=== PATIENT | female | born 1965 | race African-American/Black ===

== ENCOUNTER 2016-10-21 14:13 | Inpatient (IN) | payer MEDICARE, MEDICAID ==
[~2016-10-21] VITALS: Ht 172.7 cm; Wt 81.2 kg
[~2016-10-21 14:13] MED LIST: AMLODIPINE; ATEN-42 PO; CHLO25TA16 PO; CYCL-108 PO; IRON; PRILOSEC; TRAMADOL
[2016-10-21] MEDS ORDERED: SODIUM CHLORIDE 0.9% 1,000 ML IV ONE (16:07)
[2016-10-21] MEDS ORDERED: ALBUTEROL (0.083%) 2.5MG/3ML NEB HHN STA (16:07)
[2016-10-21] MEDS ORDERED: IPRATROPIUM BROMIDE (0.02%) 0.5MG/2.5ML NEB HHN STA (16:07)
[2016-10-21] MEDS ORDERED: KETOROLAC 30MG/ML VIAL IV ONE (16:15)
[2016-10-21] MEDS ORDERED: ONDANSETRON HCL 4MG/2ML VIAL IV ONE (16:15)
[2016-10-21] MEDS ORDERED: ALBUTEROL (0.5%) 2.5MG/0.5ML NEB HHN ONE (16:25)
[2016-10-21 16:53] LABS: BASOPHILS % 0.4 % (0.0-2.0); DIFFERENTIAL COMMENT 0; EOSINOPHILS % 1.1 % (0.0-5.0); HEMATOCRIT. 40.4 % (36.0-48.0); HEMOGLOBIN. 13.9 g/dL (12.0-16.0); LYMPHOCYTES % 8.8 % (20.0-50.0); MEAN CORPUSCULAR HEMOGLOBIN 33.1 pg (28.0-32.0); MEAN CORPUSCULAR HGB CONC 34.5 g/dL (31.0-37.0); MEAN CORPUSCULAR VOLUME 96.1 fL (81.0-99.0); MEAN PLATELET VOLUME 9.5 fl (7.4-10.4); MONOCYTES % 4.5 % (2.0-8.0); NEUTROPHILS % 85.2 % (40.0-76.0); PLATELET 287 x1000/uL (130-400); RED BLOOD CELL COUNT 4.21 mill/uL (4.2-5.4); RED CELL DISTRIBUTION WIDTH 14.7 % (11.6-14.6); WHITE BLOOD COUNT 20.7 x1000/uL (4.5-11.0)
[2016-10-21 16:59] LABS: INR 1.5; PARTIAL THROMBOPLASTIN TIME 32.7 sec (24.0-34.0); PROTHROMBIN TIME 16.2 sec
[2016-10-21 17:04] LABS: ALBUMIN 3.2 g/dL (3.4-5.0); ANION GAP 16; CALCIUM 8.3 mg/dL (8.5-10.1); CARBON DIOXIDE 27 mEq/L (21-32); CHLORIDE 94 mEq/L (98-107); INDEX HEMOLYSI 1 (1-3); INDEX ICTERIC 1 (1-4); INDEX LIPEMIC 1 (1-3); LIPASE 150 IU/L (73-393); UREA NITROGEN BLOOD 16 mg/dL (7-21); eGFR 57 mL/min (>60)
[2016-10-21 17:10] LABS: ALANINE AMINOTRANSFERASE 2315 IU/L (13-61)
[2016-10-21] MEDS ORDERED: PIPERACILLIN/TAZ 3.375G PREMIX 50 ML IV NR (18:00)
[2016-10-21] MEDS ORDERED: POTASSIUM CHLORIDE 40MEQ/30ML UDC PO ONE (18:15)
[2016-10-21] MEDS ORDERED: POTASSIUM CHLORIDE 20MEQ TABLET SR PO NR (18:39)
[2016-10-21 19:09] LABS: BILIRUBIN DIRECT 0.5 mg/dL (0.0-0.2); INDEX HEMOLYSI 2 (1-3); TROPONIN I < 0.02 ng/mL (0.00-0.04)
[2016-10-21 19:12] LABS: LACTIC ACID 2.8 mmol/L (0.4-2.0)
[2016-10-21] MEDS ORDERED: KCL 20MEQ/100ML PREMIX 100 ML IV ONE (19:15)
[2016-10-21 19:38] LABS: HEPATITIS B SURFACE ANTIGEN NEGATIVE
[2016-10-21 19:59] LABS: ETHANOL BLOOD < 10 mg/dL; INDEX HEMOLYSI 1 (1-3); MAGNESIUM 1.9 mg/dL (1.8-2.4)
[2016-10-21 20:05] LABS: HEPATITIS C VIR.AB < 0.02 INDEXVAL (0.00-0.80)
[2016-10-21 20:06] LABS: HEPATITIS B CORE AB IGM NEGATIVE
[2016-10-21 20:07] LABS: HEPATITIS A AB IGM NEGATIVE (NEGATIVE)
[2016-10-21 20:09] LABS: CLARITY URINE CLOUDY (CLEAR); COLOR URINE DARK YELLOW (YELLOW); GLUCOSE URINE NEGATIVE (NEGATIVE); KETONES URINE TRACE (NEGATIVE); LEUKOCYTE ESTERASE URINE NEGATIVE (NEGATIVE); NITRITE URINE NEGATIVE (NEGATIVE); OCCULT BLOOD URINE 2+ (NEGATIVE); PROTEIN URINE TRACE (NEGATIVE); SPECIFIC GRAVITY URINE 1.032 (1.005-1.030)
[2016-10-21 20:41] LABS: BACTERIA URINE 3+; SQUAMOUS EPITHELIAL CELL URINE FEW /lpf (RARE/1+); WBC URINE 0-2 /hpf (0-2)
[2016-10-21] MEDS ORDERED: HYDROCODONE/APAP 7.5/325MG 1 TAB TABLET PO ONE (20:45)
[2016-10-21] MEDS ORDERED: ACET-2178 PO (22:59)
[2016-10-21] MEDS ORDERED: PSEU120T84 PO (23:10)
[2016-10-21] MEDS ORDERED: OMEP20CA10 PO (23:10)
[2016-10-21] MEDS ORDERED: ASPI-1035 PO (23:10)
[2016-10-21] MEDS ORDERED: DOCU-150 PO (23:10)
[2016-10-21] MEDS ORDERED: ATEN50TA PO (23:10)
[2016-10-21] MEDS ORDERED: FERR-63 PO (23:10)
[2016-10-21] MEDS ORDERED: AMLO10TA80 PO (23:10)
[2016-10-21] MEDS ORDERED: OCD PO (23:10)
[2016-10-21] MEDS ORDERED: CLAR10 PO (23:10)
[2016-10-21] MEDS ORDERED: HYDR25TA PO (23:10)
[2016-10-21] MEDS ORDERED: IBUP-1509 PO (23:10)
[2016-10-21] MEDS ORDERED: MOME13HF2 INH (23:10)
[2016-10-21 23:13] VITALS: BP 102/72
[2016-10-21] MEDS ORDERED: FLUT16SP15 INH (23:13)
[2016-10-21] MEDS ORDERED: [UNRECOGNIZED DRUG - OTHER] (23:15)
[2016-10-21 23:30] VITALS: BP 104/52
[2016-10-22] VITALS: BP 110/65
[2016-10-22] MEDS ORDERED: ONDANSETRON HCL 4MG/2ML VIAL IV PRN
[2016-10-22] MEDS: MORPHINE SULFATE 4 MG/ML CPJ (NOT FOR IM USE) IV PRN ×3 (00:32→21:13)
[2016-10-22] MEDS: DEXT 5%/0.45% NACL KCL 20MEQ/L 1,000 ML IV SCH ×2 (02:12→21:14)
[2016-10-22 04:00] VITALS: BP 101/66
[2016-10-22 06:01] LABS: HEMATOCRIT 38.4 % (36.0-48.0); HEMOGLOBIN 13.1 g/dL (12.0-16.0); MEAN CORPUSCULAR HEMOGLOBIN 32.4 pg (28.0-32.0); MEAN CORPUSCULAR VOLUME 95.1 fL (81.0-99.0); PLATELET 285 x1000/uL (130-400); RED BLOOD CELL COUNT 4.03 mill/uL (4.2-5.4); RED CELL DISTRIBUTION WIDTH 14.7 % (11.6-14.6); WHITE BLOOD COUNT 17.2 x1000/uL (4.5-11.0)
[2016-10-22 07:00] LABS: CHLORIDE 96 mEq/L (98-107); INDEX HEMOLYSI 1 (1-3); INDEX ICTERIC 1 (1-4); INDEX LIPEMIC 1 (1-3)
[2016-10-22 07:16] LABS: ALANINE AMINOTRANSFERASE 1764 IU/L (13-61); ALBUMIN 2.6 g/dL (3.4-5.0); ANION GAP 15; CARBON DIOXIDE 26 mEq/L (21-32); GAMMA GLUTAMYL TRANSPEPTIDASE 355 IU/L (7-32); UREA NITROGEN BLOOD 12 mg/dL (7-21); eGFR > 60 mL/min (>60)
[2016-10-22 08:00] VITALS: BP 112/70
[2016-10-22] MEDS ORDERED: POTASSIUM CHLORIDE 20MEQ TABLET SR PO NR (08:30)
[2016-10-22] MEDS: PANTOPRAZOLE SODIUM 40 MG/VIAL IV SCH (09:09)
[2016-10-22] MEDS ORDERED: POTASSIUM CHLORIDE INJ 40 MEQ in DEXT 5% WATER 250 ML IV NR (09:30)
[2016-10-22] MEDS ORDERED: IPRATROPIUM/ALBUTEROL 0.5-3(2.5)MG/3ML NEB HHN PRN (11:15)
[2016-10-22] MEDS ORDERED: AZITHROMYCIN 500 MG in DEXT 5% WATER 250 ML IV SCH (11:30)
[2016-10-22 12:00] VITALS: BP 100/69
[2016-10-22] MEDS: IPRATROPIUM/ALBUTEROL 0.5-3(2.5)MG/3ML NEB HHN SCH ×2 (13:20→20:34)
[2016-10-22] MEDS: CEFTRIAXONE 1 G PREMIX 50 ML IV SCH (15:26)
[2016-10-22 16:00] VITALS: BP 108/66
[2016-10-22] MEDS: AZITHROMYCIN 500 MG in DEXT 5% WATER 250 ML IV SCH (16:01)
[2016-10-22 20:00] VITALS: BP 104/74
[2016-10-23] VITALS: BP 111/70
[2016-10-23] MEDS: IPRATROPIUM/ALBUTEROL 0.5-3(2.5)MG/3ML NEB HHN SCH ×4 (02:43→20:40)
[2016-10-23 04:00] VITALS: BP 125/71
[2016-10-23 05:49] LABS: ALBUMIN 2.4 g/dL (3.4-5.0); ANION GAP 14; CALCIUM 8.1 mg/dL (8.5-10.1); CARBON DIOXIDE 27 mEq/L (21-32); CHLORIDE 97 mEq/L (98-107); INDEX HEMOLYSI 1 (1-3); INDEX ICTERIC 1 (1-4); INDEX LIPEMIC 1 (1-3); UREA NITROGEN BLOOD 6 mg/dL (7-21); eGFR > 60 mL/min (>60)
[2016-10-23 05:50] LABS: ALANINE AMINOTRANSFERASE 1066 IU/L (13-61)
[2016-10-23 05:52] LABS: HEMATOCRIT. 35.6 % (36.0-48.0); MEAN CORPUSCULAR HEMOGLOBIN 32.5 pg (28.0-32.0); MEAN CORPUSCULAR HGB CONC 33.8 g/dL (31.0-37.0); MEAN CORPUSCULAR VOLUME 96.3 fL (81.0-99.0); MEAN PLATELET VOLUME 9.3 fl (7.4-10.4); PLATELET 264 x1000/uL (130-400); RED CELL DISTRIBUTION WIDTH 14.8 % (11.6-14.6); WHITE BLOOD COUNT 15.3 x1000/uL (4.5-11.0)
[2016-10-23 07:19] LABS: DIFFERENTIAL COMMENT 1
[2016-10-23 08:00] VITALS: BP 97/63
[2016-10-23] MEDS: PANTOPRAZOLE SODIUM 40 MG/VIAL IV SCH (10:19)
[2016-10-23] MEDS ORDERED: POTASSIUM CHLORIDE 20MEQ TABLET SR PO NR (11:45)
[2016-10-23 12:00] VITALS: BP 101/65
[2016-10-23] MEDS: GUAIFENESIN/CODEINE 100-10MG/5ML UDC PO PRN ×2 (12:05→17:09)
[2016-10-23] MEDS: CEFTRIAXONE 1 G PREMIX 50 ML IV SCH (13:00)
[2016-10-23 14:09] LABS: NUCLEATED RED BLOOD CELLS 1 /100 WBC; PLATELET ESTIMATE NORMAL
[2016-10-23 16:00] VITALS: BP 105/68
[2016-10-23] MEDS: METHYLPREDNISOLONE SOD SUCC 40 MG/ML VIAL IV SCH ×2 (17:09→21:08)
[2016-10-23] MEDS: AZITHROMYCIN 500 MG in DEXT 5% WATER 250 ML IV SCH (17:09)
[2016-10-23] MEDS: DEXT 5%/0.45% NACL KCL 20MEQ/L 1,000 ML IV SCH (18:00)
[2016-10-23 20:00] VITALS: BP 117/80
[2016-10-23] MEDS: BUDESONIDE 0.5MG/2ML NEB HHN SCH (20:40)
[2016-10-23] MEDS: BENZONATATE 100MG CAPSULE PO PRN (21:08)
[2016-10-23] MEDS: MORPHINE SULFATE 4 MG/ML CPJ (NOT FOR IM USE) IV PRN (21:10)
[2016-10-24] VITALS: BP 117/79
[2016-10-24] MEDS: GUAIFENESIN/CODEINE 100-10MG/5ML UDC PO PRN ×4 (00:54→21:46)
[2016-10-24] MEDS: IPRATROPIUM/ALBUTEROL 0.5-3(2.5)MG/3ML NEB HHN SCH ×3 (01:49→20:40)
[2016-10-24] MEDS: DEXT 5%/0.45% NACL KCL 20MEQ/L 1,000 ML IV SCH ×2 (01:57→08:33)
[2016-10-24 04:00] VITALS: BP 119/82
[2016-10-24] MEDS: METHYLPREDNISOLONE SOD SUCC 40 MG/ML VIAL IV SCH ×2 (05:27→14:44)
[2016-10-24] MEDS: BENZONATATE 100MG CAPSULE PO PRN (05:27)
[2016-10-24] MEDS: MORPHINE SULFATE 4 MG/ML CPJ (NOT FOR IM USE) IV PRN ×3 (05:33→21:57)
[2016-10-24 06:19] LABS: HEMOGLOBIN. 11.8 g/dL (12.0-16.0); MEAN CORPUSCULAR HEMOGLOBIN 32.5 pg (28.0-32.0); MEAN CORPUSCULAR HGB CONC 33.8 g/dL (31.0-37.0); MEAN CORPUSCULAR VOLUME 96.1 fL (81.0-99.0); MEAN PLATELET VOLUME 9.2 fl (7.4-10.4); PLATELET 271 x1000/uL (130-400); RED BLOOD CELL COUNT 3.64 mill/uL (4.2-5.4); RED CELL DISTRIBUTION WIDTH 15.1 % (11.6-14.6); WHITE BLOOD COUNT 14.8 x1000/uL (4.5-11.0)
[2016-10-24 06:36] LABS: ALBUMIN 2.5 g/dL (3.4-5.0); ANION GAP 14; CALCIUM 8.3 mg/dL (8.5-10.1); CARBON DIOXIDE 25 mEq/L (21-32); CHLORIDE 99 mEq/L (98-107); INDEX HEMOLYSI 1 (1-3); INDEX ICTERIC 1 (1-4); INDEX LIPEMIC 1 (1-3)
[2016-10-24 06:41] LABS: ALANINE AMINOTRANSFERASE 704 IU/L (13-61); MAGNESIUM 2.3 mg/dL (1.8-2.4); eGFR > 60 mL/min (>60)
[2016-10-24 06:42] LABS: UREA NITROGEN BLOOD 4 mg/dL (7-21)
[2016-10-24 07:04] LABS: DIFFERENTIAL COMMENT 1
[2016-10-24] MEDS: BUDESONIDE 0.5MG/2ML NEB HHN SCH ×2 (07:13→20:40)
[2016-10-24 08:00] VITALS: BP 128/84
[2016-10-24] MEDS: FAMOTIDINE 20MG TABLET PO SCH ×2 (08:32→21:47)
[2016-10-24] MEDS ORDERED: POTASSIUM CHLORIDE 20MEQ TABLET SR PO SCH (09:30)
[2016-10-24 11:08] LABS: PLATELET ESTIMATE NORMAL
[2016-10-24 12:00] VITALS: BP 138/73
[2016-10-24] MEDS: CEFTRIAXONE 1 G PREMIX 50 ML IV SCH (13:44)
[2016-10-24] MEDS: AZITHROMYCIN 500 MG in DEXT 5% WATER 250 ML IV SCH (14:46)
[2016-10-24 16:00] VITALS: BP_SYST 120; BP_SYST 125; BP_DIAS 78
[2016-10-24 20:00] VITALS: BP 133/90
[2016-10-24] MEDS: FLUTICASONE PROPIONATE 50MCG/SPRAY BOTTLE BOTHNSTRLS SCH (21:47)
[2016-10-24] MEDS: LORATADINE 10MG TABLET PO SCH (21:58)
[2016-10-25] VITALS: BP 126/77
[2016-10-25] MEDS: BENZONATATE 100MG CAPSULE PO PRN ×2 (00:52→16:09)
[2016-10-25] MEDS: IPRATROPIUM/ALBUTEROL 0.5-3(2.5)MG/3ML NEB HHN SCH ×4 (02:28→20:14)
[2016-10-25] MEDS: GUAIFENESIN/CODEINE 100-10MG/5ML UDC PO PRN ×3 (02:50→22:49)
[2016-10-25] MEDS: ACETAMINOPHEN 325MG TABLET PO PRN ×2 (03:09→16:09)
[2016-10-25 04:00] VITALS: BP 124/78
[2016-10-25 08:00] VITALS: BP 132/84
[2016-10-25] MEDS: METHYLPREDNISOLONE SOD SUCC 40 MG/ML VIAL IV SCH ×2 (08:02→16:09)
[2016-10-25] MEDS: FAMOTIDINE 20MG TABLET PO SCH ×2 (08:02→20:52)
[2016-10-25] MEDS: DEXT 5%/0.45% NACL KCL 20MEQ/L 1,000 ML IV SCH (08:02)
[2016-10-25] MEDS: FLUTICASONE PROPIONATE 50MCG/SPRAY BOTTLE BOTHNSTRLS SCH ×2 (08:03→20:52)
[2016-10-25] MEDS: BUDESONIDE 0.5MG/2ML NEB HHN SCH ×2 (09:50→20:17)
[2016-10-25 12:00] VITALS: BP 131/88
[2016-10-25] MEDS: CEFTRIAXONE 1 G PREMIX 50 ML IV SCH (13:32)
[2016-10-25] MEDS: AZITHROMYCIN 500 MG in DEXT 5% WATER 250 ML IV SCH (15:53)
[2016-10-25 16:00] VITALS: BP 123/90
[2016-10-25 17:55] LABS: HEMATOCRIT. 36.4 % (36.0-48.0); HEMOGLOBIN. 12.1 g/dL (12.0-16.0); MEAN CORPUSCULAR HEMOGLOBIN 32.3 pg (28.0-32.0); MEAN CORPUSCULAR HGB CONC 33.2 g/dL (31.0-37.0); MEAN CORPUSCULAR VOLUME 97.4 fL (81.0-99.0); MEAN PLATELET VOLUME 9.4 fl (7.4-10.4); PLATELET 338 x1000/uL (130-400); RED BLOOD CELL COUNT 3.74 mill/uL (4.2-5.4); RED CELL DISTRIBUTION WIDTH 15.2 % (11.6-14.6); WHITE BLOOD COUNT 24.6 x1000/uL (4.5-11.0)
[2016-10-25 17:57] LABS: DIFFERENTIAL COMMENT 1
[2016-10-25 18:18] LABS: ANION GAP 14; CALCIUM 8.7 mg/dL (8.5-10.1); CARBON DIOXIDE 23 mEq/L (21-32); CHLORIDE 105 mEq/L (98-107); INDEX HEMOLYSI 1 (1-3); INDEX ICTERIC 1 (1-4); INDEX LIPEMIC 1 (1-3); UREA NITROGEN BLOOD 6 mg/dL (7-21); eGFR > 60 mL/min (>60)
[2016-10-25 20:00] VITALS: BP 114/86
[2016-10-25 20:51] LABS: PLATELET ESTIMATE NORMAL
[2016-10-25 20:52] LABS: ANISOCYTOSIS 1+; GIANT PLATELETS FEW; PLATELET SATELLITISM FEW
[2016-10-25] MEDS: LORATADINE 10MG TABLET PO SCH (20:52)
[2016-10-25] MEDS: GUAIFENESIN 600MG ER TABLET PO SCH (20:52)
[2016-10-25] MEDS: MORPHINE SULFATE 4 MG/ML CPJ (NOT FOR IM USE) IV PRN (23:36)
[2016-10-26] VITALS (7 sets, daily range): BP systolic 113–135; BP diastolic 74–98
[2016-10-26] MEDS: DEXT 5%/0.45% NACL KCL 20MEQ/L 1,000 ML IV SCH ×3 (00:51→15:27)
[2016-10-26] MEDS: IPRATROPIUM/ALBUTEROL 0.5-3(2.5)MG/3ML NEB HHN SCH ×5 (02:19→20:28)
[2016-10-26] MEDS: BENZONATATE 100MG CAPSULE PO PRN ×2 (02:26→15:26)
[2016-10-26] MEDS: ZOLPIDEM TARTRATE 5MG TABLET PO PRN ×2 (02:27→23:33)
[2016-10-26] MEDS: GUAIFENESIN/CODEINE 100-10MG/5ML UDC PO PRN (06:55)
[2016-10-26] MEDS: FAMOTIDINE 20MG TABLET PO SCH ×2 (08:38→21:29)
[2016-10-26] MEDS: GUAIFENESIN 600MG ER TABLET PO SCH ×2 (08:38→21:29)
[2016-10-26] MEDS: METHYLPREDNISOLONE SOD SUCC 40 MG/ML VIAL IV SCH ×2 (08:38→17:16)
[2016-10-26] MEDS: FLUTICASONE PROPIONATE 50MCG/SPRAY BOTTLE BOTHNSTRLS SCH ×2 (08:38→21:30)
[2016-10-26] MEDS: BUDESONIDE 0.5MG/2ML NEB HHN SCH ×2 (08:50→20:29)
[2016-10-26] MEDS: CEFTRIAXONE 1 G PREMIX 50 ML IV SCH (13:51)
[2016-10-26] MEDS: AZITHROMYCIN 500 MG in DEXT 5% WATER 250 ML IV SCH (15:26)
[2016-10-26] MEDS: MORPHINE SULFATE 4 MG/ML CPJ (NOT FOR IM USE) IV PRN ×2 (15:27→21:37)
[2016-10-26] MEDS: LORATADINE 10MG TABLET PO SCH (21:29)
[2016-10-27] VITALS: BP 128/76
[2016-10-27] MEDS: IPRATROPIUM/ALBUTEROL 0.5-3(2.5)MG/3ML NEB HHN SCH ×3 (02:45→13:48)
[2016-10-27 04:00] VITALS: BP 122/79
[2016-10-27 08:00] VITALS: BP 126/92
[2016-10-27] MEDS: BUDESONIDE 0.5MG/2ML NEB HHN SCH (08:42)
[2016-10-27] MEDS: GUAIFENESIN 600MG ER TABLET PO SCH (09:34)
[2016-10-27] MEDS: METHYLPREDNISOLONE SOD SUCC 40 MG/ML VIAL IV SCH (09:34)
[2016-10-27] MEDS: FLUTICASONE PROPIONATE 50MCG/SPRAY BOTTLE BOTHNSTRLS SCH (09:34)
[2016-10-27] MEDS: FAMOTIDINE 20MG TABLET PO SCH (09:35)
[2016-10-27] MEDS: DEXT 5%/0.45% NACL KCL 20MEQ/L 1,000 ML IV SCH (09:36)
[2016-10-27] MEDS: ACETAMINOPHEN 325MG TABLET PO PRN (09:49)
[2016-10-27 12:00] VITALS: BP 124/80
[2016-10-27 14:52] VITALS: BP 124/80
== END 2016-10-27 17:30 | disposition home health service (06) | DRG 871 ==
LOC: ER 14:15 → 5WST 20:32
PROVIDERS: ADMIT Hospitalist; ATTEND Hospitalist
DX: A41.9 Sepsis, unspecified organism (principal); J69.0 Pneumonitis due to inhalation of food and vomit; J96.00 Acute respiratory failure, unspecified whether with hypoxia or hypercapnia; J44.0 Chronic obstructive pulmonary disease with (acute) lower respiratory infection; D64.9 Anemia, unspecified; E87.6 Hypokalemia; I10 Essential (primary) hypertension; G47.30 Sleep apnea, unspecified; F17.210 Nicotine dependence, cigarettes, uncomplicated; J44.9 Chronic obstructive pulmonary disease, unspecified; J45.909 Unspecified asthma, uncomplicated; K21.9 Gastro-esophageal reflux disease without esophagitis; E66.9 Obesity, unspecified; Z79.899 Other long term (current) drug therapy; Z68.27 Body mass index [BMI] 27.0-27.9, adult
CPT/HCPCS: 36415; 71010; 71020; 74176; 76705; 80048; 80053; 80302; 81001; 82248; 82977; 83605; 83690; 83735; 84484; 85025; 85027; 85610; 85730; 86705; 86709; 86803; 87040; 87070; 87086; 87340; 87430; 87804; 93005; 94640; 94660; 94664; 96361; 96365; 96375; 99285; C9113; G0482; J0456; J0696; J1885; J2270; J2405; J2543; J2920; J3480; J7030; J7040; J7060; J7611; J7620; J7626

== ENCOUNTER 2017-06-26 16:29 | Emergency (ER) | payer MEDICARE, MEDICAID ==
[~2017-06-26] VITALS: Ht 170.2 cm; Wt 95.0 kg
[~2017-06-26 16:29] MED LIST changes: +ACET-2178 PO; +AMLO10TA80 PO; +ASPI-1159 PO; +ATEN50TA PO; -CHLO25TA16 PO; +CHLO25TA2 PO; +CLAR10 PO; +DOCU-150 PO; +FERR-63 PO; +FLUT16SP15 INH; +HYDR25TA PO; +IBUP-2028 PO; +MOME13HF2 INH; +OCD PO; +OMEP20CA10 PO; +PSEU120T84 PO; +[UNRECOGNIZED DRUG - OTHER]
[2017-06-26 16:32] VITALS: BP 154/95
[2017-06-26] MEDS ORDERED: HYDROCODONE/ACETAMINOPHEN 5/325MG TABLET PO ONE (20:15)
[2017-06-27] MEDS ORDERED: HYDROCODONE/ACETAMINOPHEN 5/325MG TABLET PO ONE (00:15)
== END 2017-06-27 01:30 | disposition home or self-care (01) ==
LOC: ER 18:56
DX: S82.852A Displaced trimalleolar fracture of left lower leg, initial encounter for closed fracture (principal); S82.832A Other fracture of upper and lower end of left fibula, initial encounter for closed fracture; R07.81 Pleurodynia; I10 Essential (primary) hypertension; K21.9 Gastro-esophageal reflux disease without esophagitis; F17.200 Nicotine dependence, unspecified, uncomplicated; W10.9XXA Fall (on) (from) unspecified stairs and steps, initial encounter; Y93.89 Activity, other specified; Y92.89 Other specified places as the place of occurrence of the external cause; Y99.8 Other external cause status
CPT/HCPCS: 29505; 71010; 73562; 73590; 73600; 73620; 93005; 93970; 99284

== ENCOUNTER → 2019-10-24 | Outpatient (CLI) | payer MEDICARE, MEDICAID ==
[~2019-10-24] MED LIST changes: -ACET-2178 PO; -ASPI-1159 PO; +ASPI-1497 PO; -OMEP20CA10 PO; +OMEP20CA14 PO; +TOPUD PO
== END | disposition home or self-care (01) ==
LOC: RAD 13:09
PROVIDERS: ATTEND Podiatrist Foot & Ankle Surgery
DX: S93.602A Unspecified sprain of left foot, initial encounter (principal); X58.XXXA Exposure to other specified factors, initial encounter; Y93.89 Activity, other specified; Y92.89 Other specified places as the place of occurrence of the external cause; Y99.8 Other external cause status
CPT/HCPCS: 73600; 73630

== ENCOUNTER → 2020-10-29 | Outpatient (CLI) | payer MEDICARE, MEDICAID | END | disposition home or self-care (01) | LOC: LAB 11:27 | PROVIDERS: ATTEND Specialist | DX: Z01.812 Encounter for preprocedural laboratory examination (principal); R05 Cough; Z20.822 Contact with and (suspected) exposure to COVID-19 | CPT/HCPCS: 87426 ==

== ENCOUNTER 2020-10-30 06:18 | Day surgery (SDC) | payer MEDICARE, MEDICAID ==
[~2020-10-30] VITALS: Ht 170.2 cm; Wt 95.0 kg
[2020-10-30] MEDS ORDERED: IODIXANOL 320MG/ML 100 ML BOTTLE IV ONE (07:20)
[2020-10-30] MEDS ORDERED: LIDOCAINE HCL 1% 20ML VIAL (Pyxis) INJ ONE (07:20)
[2020-10-30] MEDS ORDERED: ASPIRIN/SOD BICARB/CITRIC ACID 324MG TAB EFF ONE (07:21)
[2020-10-30] MEDS ORDERED: HEPARIN SODIUM 1,000 UNIT/1ML VIAL IV ONE (07:26)
[2020-10-30] MEDS ORDERED: NITROGLYCERIN 50MCG/ML 10ML VIAL (CATH LAB) IV ONE (07:26)
[2020-10-30] MEDS ORDERED: NICARDIPINE 100MCG/ML 10ML VIAL (CATH LAB) IV ONE (07:26)
[2020-10-30] MEDS ORDERED: FENTANYL CITRATE/PF 50MCG/ML 2ML VIAL ONE (07:30)
[2020-10-30] MEDS ORDERED: MIDAZOLAM HCL 2 MG/2 ML VIAL ONE (07:30)
[2020-10-30] MEDS ORDERED: MORPHINE SULFATE 2 MG/ML CPJ (NOT FOR IM USE) IV PRN ×2 (08:30)
[2020-10-30] MEDS ORDERED: ACETAMINOPHEN 325MG TABLET PO PRN (08:30)
== END 2020-10-30 12:45 | disposition home or self-care (01) ==
LOC: CCL 06:18
PROVIDERS: ATTEND Specialist
DX: I25.10 Atherosclerotic heart disease of native coronary artery without angina pectoris (principal); F17.210 Nicotine dependence, cigarettes, uncomplicated; Z79.82 Long term (current) use of aspirin; Z79.899 Other long term (current) drug therapy; Z98.890 Other specified postprocedural states
CPT/HCPCS: 93454; C1769; C1893; J1644; J2250; J3010; J3490; Q9967

== ENCOUNTER → 2021-05-23 | Outpatient (CLI) | payer MEDICARE, MEDICAID ==
[~2021-05-23] MED LIST changes: +BARIUM SULFATE 450ML ORAL SUSP ONE; +GABA800T97 PO; +HYDR-4350 MT; -HYDR25TA PO; +IOHEXOL-350 100 ML BOTTLE ONE
== END | disposition home or self-care (01) ==
LOC: CT 08:25
PROVIDERS: ATTEND Internal Medicine Gastroenterology
DX: K86.89 Other specified diseases of pancreas (principal)
CPT/HCPCS: 74178; Q9967

== ENCOUNTER 2022-11-06 08:38 | Emergency (ER) | payer MEDICARE, MEDICAID ==
[~2022-11-06] VITALS: Ht 167.6 cm; Wt 87.0 kg
[~2022-11-06 08:38] MED LIST changes: -BARIUM SULFATE 450ML ORAL SUSP ONE; -IOHEXOL-350 100 ML BOTTLE ONE; +MOME13HF12 INH; -MOME13HF2 INH
[2022-11-06 09:05] VITALS: BP 103/62
[2022-11-06 09:57] LABS: CHLORIDE 105 mEq/L (98-107)
[2022-11-06 09:59] LABS: BASOPHILS % 0.2 % (0.0-2.0); EOSINOPHILS % 0.4 % (0.0-5.0); HEMATOCRIT. 33.6 % (36.0-48.0); HEMOGLOBIN. 11.6 g/dL (12.0-16.0); LYMPHOCYTES % 25.8 % (20.0-50.0); MEAN CORPUSCULAR VOLUME 107.6 fL (81.0-99.0); MEAN PLATELET VOLUME 7.8 fl (7.4-10.4); MONOCYTES % 2.1 % (2.0-8.0); NEUTROPHILS % 71.5 % (40.0-76.0); PLATELET 438 x1000/uL (130-400); RED BLOOD CELL COUNT 3.12 mill/uL (4.2-5.4); RED CELL DISTRIBUTION WIDTH 16.8 % (11.6-14.6)
[2022-11-06 10:29] LABS: ETHANOL BLOOD 332 mg/dL
== END 2022-11-06 10:09 | disposition home or self-care (01) ==
LOC: ER 08:53
DX: F41.9 Anxiety disorder, unspecified (principal); D64.9 Anemia, unspecified; K21.9 Gastro-esophageal reflux disease without esophagitis; I10 Essential (primary) hypertension; Z87.01 Personal history of pneumonia (recurrent); Z79.899 Other long term (current) drug therapy
CPT/HCPCS: 36415; 71045; 80053; 80320; 83880; 84484; 85025; 93005; 99285; G0480